=== PATIENT | female | born 1965 ===

== ENCOUNTER 2023-01-16 11:06 | Outpatient (CLI) | payer OTHER | END 2023-01-16 11:13 | disposition home or self-care (01) | LOC: SONOGRAMA 11:06 | PROVIDERS: ATTEND Pathology Anatomic Pathology & Clinical Pathology | DX: D11.0 Benign neoplasm of parotid gland (principal) ==

== ENCOUNTER 2023-08-07 07:49 | Outpatient (CLI) | payer OTHER | END 2023-08-07 07:51 | disposition home or self-care (01) | LOC: SONOGRAMA 07:49 | PROVIDERS: ATTEND Pathology Anatomic Pathology & Clinical Pathology | DX: D11.0 Benign neoplasm of parotid gland (principal); R22.1 Localized swelling, mass and lump, neck ==